=== PATIENT | female | born 1985 | race Caucasian/White ===

== ENCOUNTER 2017-07-25 05:58 | Inpatient (IN) | payer OTHER ==
[2017-07-25 06:44] VITALS: BMI 30.2
[2017-07-25] MEDS: Lactated Ringer's 1,000 ML IV SCH ×3 (06:50→10:52)
[2017-07-25] MEDS ORDERED: LR 500 ML/Oxytocin 10 units 500 ML ONE (07:00)
[2017-07-25] MEDS ORDERED: LR 500 ML/Oxytocin 10 units 500 ML IV SCH (07:01)
[2017-07-25] MEDS ORDERED: Ibuprofen 800 MG TAB PO PRN (07:01)
[2017-07-25] MEDS ORDERED: Ondansetron HCl/PF 4 MG/2 ML Vial IVP PRN (07:01)
[2017-07-25] MEDS ORDERED: Promethazine HCl 25 MG/ML VIAL IM PRN (07:01)
[2017-07-25] MEDS ORDERED: Misoprostol 200 MCG TAB PR PRN (07:01)
[2017-07-25] MEDS ORDERED: HYDROcodone/Acetaminophen 5/325 mg Tablet PO PRN ×3 (07:01→17:51)
[2017-07-25] MEDS ORDERED: Carboprost 250 MCG/ML AMP IM PRN (07:01)
[2017-07-25] MEDS ORDERED: Diphenoxylate HCl/Atropine Tablet PO PRN (07:01)
[2017-07-25] MEDS ORDERED: Methylergonovine 0.2 MG/ML VIAL IM PRN (07:01)
[2017-07-25] MEDS ORDERED: Lidocaine 1% (PF) 30 ML VIAL SC PRN (07:01)
[2017-07-25] MEDS ORDERED: Acetaminophen 500 MG TAB PO PRN (07:01)
[2017-07-25 07:27] LABS: Mean Corpuscular HGB CONC 32.6 g/dL (32.0-36.0); Mean Corpuscular Hemoglobin 27.7 pg (27.0-31.0); Mean Corpuscular Volume 84.9 fl (81.0-99.0); Platelet Count 170 thou/uL (130-400); RBC Distribution Width 14.5 % (11.5-14.5); Red Blood Cell (RBC) Count 3.97 mill/uL (4.20-5.40); White Blood Cell (WBC) Count 8.6 thou/uL (4.8-10.8)
[2017-07-25] MEDS ORDERED: Bupivacaine 0.5% 20 ML, fentaNYL Citrate/PF 400 MCG in Sodium Chloride 0.9% 72 ML EPIDURAL SCH (07:30)
[2017-07-25] MEDS ORDERED: DISCONTINUE ALL PREVIOUS NARCOTICS FS SCH (07:30)
--- NOTE | 2017-07-25 07:49 | PDOC.LDHP ---
Labor and Delivery H&P Chief complaint: scheduled induction HPI: 32yo at 39w for elective IOL. No complaints. Good FM. Current gestational age (weeks): 40 Due date: 07/25/17 Grav: 3 Para: 2 Current complications: none Abnormal US findings: No Past Medical History: denies Current medications: pre- vitamins Previous surgical history: other (jaw surgery) Allergies/Adverse Reactions: Allergies Allergy/AdvReac Type Severity Reaction Status Date / Time penicillin V Allergy Mild Rash Verified 12/02/14 10:31 Social history: none - Physical Exam Vital signs reviewed and normal: yes General: NAD Heart: RRR Lungs: CTAB Abdomen: gravid Extremeties: no edema FHT: category 1 [place] contractions every: q5 min - Vaginal Exam cm dilated: 3 Effacement: 50% Station: -3 (arom clear) - OB Labs RH: negative Antibody Screen: positive HIV: negative RPR: negative HEPSAg: negative 1 hour GCT: negative GBS: negative Rubella: non-immune - Assessment L&D Assessment: elective induction at term - Plan Plan: admit to L&D, labor augmentation if indicated, informed consent obtained, anesthesia consult for pain management
[2017-07-25 07:58] LABS: HBSAg Index 0.25 S/CO (0-0.99); Hep B Surf Ag Non-Reactive S/CO (NonReactive); Syphilis Antibody Nonreactive (Nonreactive); Syphilis Antibody Index 0.04 S/CO (<1.00 Non-Reactive)
[2017-07-25] MEDS ORDERED: Naloxone HCl 0.4 mg/ml Vial IVP PRN (09:06)
[2017-07-25] MEDS ORDERED: ePHEDrine/0.9% NaCl/PF SYRINGE 50 mg/10 ml SLOW IVP PRN (09:06)
[2017-07-25] MEDS ORDERED: Lactated Ringer's 500 ML IV PRN (09:06)
[2017-07-25] MEDS ORDERED: Eucerin (Mineral Oil/Petrolatum,White) 30 gm Jar TOP PRN (09:06)
[2017-07-25] MEDS ORDERED: Fentanyl 4mcg/Marcaine 0.1% Cassette 100 ML EPIDURAL SCH (09:15)
[2017-07-25] MEDS ORDERED: Communication Order-Pharmacy FS SCH (09:15)
[2017-07-25] MEDS ORDERED: ePHEDrine/0.9% NaCl/PF SYRINGE 50 mg/10 ml ONE (11:11)
[2017-07-25] MEDS: LR / Pitocin 40 units/1000 ml 1,000 ML IV PRN ×2 (14:00→15:52)
[2017-07-25 14:12] LABS: Actual Bicarbonate (HCO3a) 23.5 mEq/L (22-26); Base Excess (BEa) -4.7 mEq/L (0 (+/-) 2.5)
--- NOTE | 2017-07-25 14:22 | PDOC.OPDEL ---
OB Operative/Delivery Note Delivery Dr/Surgeon: Zuleyma Assist: n/a Pre-Delivery Diagnosis: elective induction, non-reassuring tracing Procedure/Post Delivery Dx: operative vaginal delivery (VE) Weeks gestation: 39 Anesthesia: epidural - Findings A Sex: male - Additional Findings/Plan Placenta delivered: spontaneous Repaired Obstetrical Laceration: none Estimated blood loss: 200 Compilations/Other Findings: Deep late decels to 60s during pushing. Decision made for VE due to distress. Vacuum applied in DENZEL position +3 station after maternal consent. Green zone achieved and extraction successful after 2 pushes (1 contraction) for total of 40seconds application time. No pop offs. Baby to warmer, Rd present. Mom to recovery.
[2017-07-25] MEDS ORDERED: LR / Pitocin 40 units/1000 ml 1,000 ML IV SCH (17:51)
[2017-07-25] MEDS ORDERED: Bisacodyl 10 MG SUPP PR PRN (17:51)
[2017-07-25] MEDS ORDERED: Benzocaine/Menthol 20-0.5% 60 ML CAN TOP PRN (17:51)
[2017-07-25] MEDS ORDERED: Adacel (T-DAP) 0.5 ML VIAL IM ONE (17:51)
[2017-07-25] MEDS ORDERED: Preparation H Ointment 28 GM TUBE PR PRN (17:51)
[2017-07-25] MEDS ORDERED: Milk Of Magnesia 30 ML UDCUP PO PRN (17:51)
[2017-07-25] MEDS ORDERED: Lanolin Ointment 7 GM TUBE TOP PRN (17:51)
[2017-07-25] MEDS ORDERED: diphenhydrAMINE 25 MG CAP PO PRN (17:51)
[2017-07-25] MEDS ORDERED: Ferrous Sulfate 325 MG TAB PO SCH (18:30)
[2017-07-25] MEDS: Docusate Calcium (SURFAK) 240 MG CAP PO SCH (21:36)
[2017-07-25] MEDS: Ibuprofen 800 MG TAB PO SCH (23:16)
[2017-07-26] MEDS: Ibuprofen 800 MG TAB PO SCH ×2 (06:29→13:23)
[2017-07-26] MEDS: Ferrous Sulfate 325 MG TAB PO SCH ×2 (08:10→16:01)
[2017-07-26] MEDS: Docusate Calcium (SURFAK) 240 MG CAP PO SCH (08:19)
--- NOTE | 2017-07-26 08:46 | PDOC.PP ---
Post Progress Note Post Day #: 1 PO intake tolerated: yes Flatus: yes Ambulation: yes Vital Signs (12 hours) Temp Pulse Resp BP 07/26/17 07:59 98.4 F 59 L 18 107/55 L 07/26/17 07:57 97.8 F 68 18 07/26/17 04:00 97.8 F 68 18 119/58 L 07/25/17 23:30 97.8 F 60 18 111/56 L Weight Weight 187 lb - Physical Examination General: NAD Cardiovascular: RRR Respiratory: non-labored breathing Abdominal: appropriately TTP Fundus firm & at: umb Neurological: no gross focal deficits Psychiatric: normal affect Result Diagrams: 07/25/17 06:50 Additional Labs: Post Labs Hep Bs Antigen Non-Reactive S/CO (NonReactive) 07/25/17 06:50 (1) Vaginal delivery Code(s): O80 - ENCOUNTER FOR FULL-TERM UNCOMPLICATED DELIVERY Status: Acute - Assessment/Plan VSSAF PPD1 s/p VAVD for distress Doing well, bleeding scant Rh neg baby Rh neg, MMR prior to DC DC home FU 6 wk
[2017-07-26] MEDS ORDERED: Prenatal Vitamin 1 TAB PO SCH (09:00)
[2017-07-26 11:29] VITALS: BP 107/61; TEMP 98.2
[2017-07-26] MEDS ORDERED: Measles/Mumps/Rubella 10 MCG/0.5 ML VIAL SC ONE (15:30)
== END 2017-07-26 16:50 | disposition home or self-care (01) | DRG 775 ==
LOC: L&D 05:58 → 3SW 17:03
PROVIDERS: ADMIT Student in an Organized Health Care Education/Training Program; ATTEND Student in an Organized Health Care Education/Training Program
PROC: 10D07Z6 Extraction of Products of Conception, Vacuum, Via Natural or Artificial Opening (ICD-10-PCS; principal; 2017-07-25)
PROC: 10907ZC Drainage of Amniotic Fluid, Therapeutic from Products of Conception, Via Natural or Artificial Opening (ICD-10-PCS; 2017-07-25)
PROC: 3E033VJ Introduction of Other Hormone into Peripheral Vein, Percutaneous Approach (ICD-10-PCS; 2017-07-25)
DX: O76 Abnormality in fetal heart rate and rhythm complicating labor and delivery (principal); Z23 Encounter for immunization; Z37.0 Single live birth; Z3A.39 39 weeks gestation of pregnancy
CPT/HCPCS: 51702; 82805; 85027; 86780; 87340; 90707; J2001; J3010; J3490; J7050; J7120